=== PATIENT | male | born 1960 | race Caucasian/White ===

== ENCOUNTER → 2016-07-29 | Outpatient (CLI) | payer OTHER ==
[~2016-07-29] MED LIST: /LANS30GR OR; ATARAX OR; BUPIVACAINE HCL 0.25% 10 ML VIAL As Ordered ONE; BUPIVACAINE HCL 0.25% 30 ML VIAL As Ordered ONE; CYCL10TA PO; DIOVAN/HCTZ; DIOVAN/HCTZ PO; FLECTOR1.3 EXT; FLEXERIL PO; FLON0.054; HYDROCODONE/IBUPROFE; HYDROCODONE/IBUPROFE OR; ROSU10TA OR; SOMA350T; SOMA350T OR; SOMA350T PO; TARKA OR; THERGRAN PO; TIZA2CAP3 PO; TRAM50TA2 PO; TRIAMCINOLONE ACETONIDE SUSP 40 MG/ML VIAL (J3301) As Ordered ONE; VIT D 2000 PO; VOLT1GEL2 TOP; [UNRECOGNIZED DRUG - OTHER]
--- NOTE | 2016-07-29 23:29 | ECWPNPC ---
PATIENT NAME: JACK ZENDEJAS : 1960 GENDER: MALE VISIT DATE: 07/29/2016 DISCHARGE DATE: 07/29/16 1147 VISIT LOCKED DATE TIME: PHYSICIAN: EDIL KAPADIA RESOURCE: EDIL KAPADIA REASON FOR APPOINTMENT 1. TPI- LOW BACK HISTORY OF PRESENT ILLNESS HISTORY OF PRESENT ILLNESS: PAIN THE PATIENT DESCRIBES THE PAIN... FALL RISK SCREENING: SCREENING :NO FALLS IN THE PAST YEAR CURRENT MEDICATIONS TAKING DIOVAN HCT 160-25 MG TABLET 1 TABLET ORALLY ONCE A DAY, NOTES: 07/29/16 0700 TAKING FLONASE 50 MCG/ACT SUSPENSION 1 SPRAY IN EACH NOSTRIL NASALLY BID, NOTES: 07/28/16 1800 TAKING MULTIVITAMIN TABLET CHEWABLE 1 TAB(S) ORALLY DAILY, NOTES: 07/28/16 1800 TAKING CRESTOR 10 MG TABLET 1 TABLET ORALLY ONCE A DAY, NOTES: 07/28/16 1800 TAKING TARKA 4-240 MG TABLET EXTENDED RELEASE 1 TABLET WITH FOOD ORALLY ONCE A DAY, NOTES: 07/29/16 0700 TAKING TRAMADOL HCL 50 MG TABLET 1 TABLET NEEDED ORALLY EVERY 6 HRS, NOTES: 07/27/16 1900 TAKING VOLTAREN 1 % GEL 1 DOSE EXTERNALLY EVERY 6 HOURS NEEDED, NOTES: 07/28/16 1200 TAKING VITAMIN D 1000 UNIT TABLET 1 TABLET ORALLY ONCE A DAY, NOTES: 07/28/16 TAKING CYCLOBENZAPRINE HCL 10 MG TABLET 1 TABLET ORALLY THREE TIMES DAILY NEEDED, NOTES: 07/22/16 MEDICATION LIST REVIEWED AND RECONCILED WITH THE PATIENT PAST MEDICAL HISTORY HYPERTENSION EDSON ALLERGIES N.K.D.A. SURGICAL HISTORY RIGHT KNEE ARTHOSCOPY SOCIAL HISTORY GENERAL: TOBACCO USE ARE YOU A:NONSMOKER LEARNING BARRIERS / SPECIAL NEEDS ORIENTED TO PLAN OF CARE: PATIENT, PAIN MANAGEMENT PATIENT, ORIENTED TO PLAN OF CARE: PATIENT, PAIN MANAGEMENT PATIENT. NEW PATIENT PAIN DIARY TODAY'S VISITNOTES FROM 0-10, WHAT LEVEL IS YOUR PAIN TODAY?0 PAIN CLINIC PFS, CLERGY, PUBLIC HEALTH REFERRALS PFS REFERRAL NEEDED?NO CLERGY REFERRAL NEEDED?NO PUBLIC HEALTH REFERRAL NEEDED?NO WAS THE PROVIDER NOTIFIED OF ANY PERTINENT INFO?NO PFS REFERRAL NEEDED?NO CLERGY REFERRAL NEEDED?NO PUBLIC HEALTH REFERRAL NEEDED?NO WAS THE PROVIDER NOTIFIED OF ANY PERTINENT INFO?NO REVIEW OF SYSTEMS CONSTITUTIONAL: ANY CHANGE IN YOUR MEDICAL CONDITION? YES, EDSON STARTED ON CPAP . CHILLS NO . FEVER NO . INFECTION: DO YOU HAVE NEW INFECTIONS? NO . DO YOU HAVE HISTORY OF MRSA? NO . MUSCULOSKELETAL: ANY NEW PATTERNS OF PAIN OR NUMBNESS? NO . GASTROENTEROLOGY: ANY NEW CHANGE IN BOWEL CONTROL? NO . GENITOURINARY: ANY NEW CHANGE IN BLADDER CONTROL? NO . IS THERE A CHANCE YOU COULD BE ? NO . HEMATOLOGY/LYMPH: DO YOU TAKE ANY BLOOD THINNERS? (FOR EXAMPLE- COUMADIN, PLAVIX, AGGRENOX, PLATEL, PRADAXA, OR XARELTO) NO . WHEN WAS YOUR LAST DOSE? DATE: TIME: . NEUROLOGY: HAVE YOU FALLEN IN THE PAST 6 MONTHS? NO . ANY NEW EXTREMITY NUMBNESS OR WEAKNESS? NO . CARDIOLOGY: DO YOU HAVE A PACEMAKER OR DEFIBRILLATOR? NO . RESPIRATORY: HAVE YOU BEEN SICK IN THE PAST WEEK? NO . FEVER NO . FLU LIKE SYMPTOMS? NO . COUGH NO . INTEGUMENTARY: DO YOU HAVE ANY RASHES OR OPEN SORES? NO . ALLERGIC/IMMUNO: ARE YOU ALLERGIC TO SHELLFISH OR IV DYE? NO . ANY NEW ALLERGIES? NO . PSYCHIATRIC: DO YOU HAVE THOUGHTS OF HURTING YOURSELF OR SOMEONE ELSE? NO . ARE YOU ABUSED, NEGLECTED, OR IN AN UNSAFE ENVIRONMENT? NO . ENDOCRINOLOGY: ARE YOU DIABETIC? NO . OTHER: DO YOU NEED ANY PRESCRIPTIONS? NO . IF YES, PLEASE LIST: ____ . ANY NEW PROBLEMS WITH YOUR MEDICATIONS? NO . WHEN DID YOU LAST EAT? YES 07/28/16 1900 . WHEN DID YOU LAST DRINK? ____07/29/16 0700 . WHAT DID YOU LAST DRINK? ____WATER . NAME OF PERSON DRIVING YOU HOME? ____SON, CODI . DO YOU HAVE ANY OTHER QUESTIONS OR CONCERNS NO . REVIEWED BY: PROVIDER: . VITAL SIGNS WT 250 LBS, HT 71 IN, BMI 34.86 INDEX, BP 122/63 MM HG, HR 72 /MIN, RR 16 /MIN, TEMP 97.1 F, OXYGEN SAT % 96, NA INITIALS TL 1002, REVIEWED BY: AD. ASSESSMENTS MYALGIA - M79.1 (PRIMARY) PROCEDURES PN TRIGGER POINT INJECTION WITH STEROIDS PRE PROCEDURE DIAGNOSIS 1. MYALGIA 2. PAIN AT BILATERAL LOWER BACK AREA POST PROCEDURE DIAGNOSIS 1. MYALGIA 2. PAIN AT BILATERAL LOWER BACK AREA PROCEDURE TRIGGER POINT INJECTION AT BILATERAL LOWER BACK AREA SURGEON DR. EDIL KAPADIA CRUISE STAFF MEMBER NONE ANESTHESIA LOCAL PRE PROCEDURE NOTE THE PATIENT HAS A HISTORY OF CHRONIC PAIN AT THE RIGHT AND LEFT LOWER BACK AREA. I EVALUATE THE PATIENT AND REVIEWED THE CHART. THERE IS EVIDENCE OF BANDS OF TISSUE WITH RESTRICTION OF MOVEMENT AND PRESENCE OF TRIGGER POINT AT THE AFFECTED AREA. I WENT OVER THE RISKS, ALTERNATIVES, AND BENEFITS ASSOCIATED WITH THIS PROCEDURE. THE PATIENT WOULD LIKE TO PROCEED AND GIVE CONSENT TO PERFORMED THE PROCEDURE. THE PATIENT DENIES UNEXPLAINABLE WEIGHT LOSS, FEVER, CHILLS, OR NEW CHANGES IN URINARY OR BOWEL CONTROL DESCRIPTION OF PROCEDURE THE PATIENT WAS BROUGHT TO THE PROCEDURE ROOM AND PLACED IN THE SITTING POSITION. THE AREA WAS CLEANED WITH ALCOHOL. THE PROCEDURE WAS DONE USING ASEPTIC STERILE TECHNIQUE. I CHECKED LATERALITY AND THE LEVEL WHERE THE PROCEDURE WAS GOING TO BE PERFORMED WITH THE PATIENT AND THE SUPPORTING STAFF AT THE MOMENT OF THE TIME OUT IN THE PROCEDURE ROOM. USING A 25-GAUGE NEEDLE, TRIGGER POINTS WERE INJECTED AT THE RIGHT AND LEFT LOWER BACK AREA WITH A TOTAL OF 40 ML OF BUPIVACAINE 0.25% AND KENALOG 40 MG. THERE WAS NO EVIDENCE OF BLOOD, PARESTHESIA OR CEREBROSPINAL FLUID DURING THE PROCEDURE. THE PATIENT WAS SENT TO THE RECOVERY ROOM. THE PATIENT WAS MOVING THE EXTREMITIES AND DOING WELL. THERE WAS NO COMPLICATION DURING THE PROCEDURE POST PROCEDURE NOTE THE PATIENT WILL BE SEEN IN A FOLLOW UP IN THE NEXT FEW WEEKS. INSTRUCTIONS WERE GIVEN, QUESTIONS WERE ANSWERED, AND THE PATIENT EXPRESSED UNDERSTANDING AND AGREES WITH THE PLAN. I, ELISA SPENCER, DOCUMENTED THE ABOVE INFORMATION ACTING A SCRIBE FOR DR. KAPADIA. I, DR. KAPADIA, HAVE REVIEWED THE ABOVE DOCUMENT, SCRIBED BY ELISA SPENCER, AND I VERIFY THAT IT IS ACCURATE PN WORKMANS' COMP OPINION IN YOUR OPINION, WAS THE INCIDENT THAT THE PATIENT DESCRIBED THE COMPETENT MEDICAL CAUSE OF THIS INJURY/ILLNESS? YES ARE THE PATIENT'S COMPLAINTS CONSISTENT WITH HIS/HER HISTORY OF THE INJURY/ILLNESS? YES IS THE PATIENT'S HISTORY OF THE INJURY/ILLNESS CONSISTENT WITH YOUR OBJECTIVE FINDING? YES WHAT IS THE PERCENTAGE OF TEMPORARY IMPAIRMENT? MODERATE TO MARKED = 66.7% IS THE PATIENT WORKING? NO DOCTOR ON SITE: EDIL BRADY MD PROCEDURE CODES 26726 INJ TRIGGER POINT /2 MUSCL FOLLOW UP 3 WEEKS ELECTRONICALLY SIGNED BY EDIL KAPADIA MD ON 07/29/2016 AT 08:28 PM EST DISCLAIMER : THIS IS A VISIT SUMMARY EXTRACTED FROM THE [employer] CHART. IT IS NOT A COPY OF THE [employer] PROGRESS NOTE. CIARA
== END ==
LOC: M PAIN 10:00
PROVIDERS: ATTEND Anesthesiology
DX: G89.21 Chronic pain due to trauma (principal); M79.1 Myalgia; M54.5 Low back pain; I10 Essential (primary) hypertension; G47.30 Sleep apnea, unspecified; Z79.891 Long term (current) use of opiate analgesic; Z79.899 Other long term (current) drug therapy
CPT/HCPCS: 20552; J3301

== ENCOUNTER → 2016-09-15 | Outpatient (CLI) | payer OTHER ==
[~2016-09-15] MED LIST changes: -BUPIVACAINE HCL 0.25% 10 ML VIAL As Ordered ONE; -BUPIVACAINE HCL 0.25% 30 ML VIAL As Ordered ONE; -TRIAMCINOLONE ACETONIDE SUSP 40 MG/ML VIAL (J3301) As Ordered ONE
--- NOTE | 2016-09-26 23:36 | ECWPNPC ---
PATIENT NAME: JACK ZENDEJAS : 1960 GENDER: MALE VISIT DATE: 09/15/2016 DISCHARGE DATE: 09/15/16 1232 VISIT LOCKED DATE TIME: PHYSICIAN: EDIL KAPADIA RESOURCE: EDIL KAPADIA REASON FOR APPOINTMENT 1. W/C LUMBAR HISTORY OF PRESENT ILLNESS HISTORY OF PRESENT ILLNESS: PAIN THE PATIENT DESCRIBES THE PAIN... 56 YEAR OLD MALE PATIENT WITH HISTORY OF CHRONIC BACK PAIN. PATIENT DESCRIBES THE PAIN ACHING, BURNING, TENDER, AND SORE WITH A PAIN SCORE OF 3/10 ON TODAY'S VISIT. PATIENT WAS INJURED IN A WORK RELATED INJURY ON 05-23-1998 WHEN HE WAS PICKING UP CEMENT BLOCKS INJURING HIS BACK. PATIENT WAS ALSO INJURED AGAIN ON 08-19-2000 WHEN HE FELL DOWN A FLIGHT OF STAIRS INJURING HIS BACK. PATIENT RECEIVED A TPI IN THE LUMBAR AREA ON 07/29/2016 AND REPORTS FEELING HIS PAIN LEVEL GO DOWN 50 PERCENT FOR 2 MONTHS. PATIENT REPORTS THAT HE SOMETIMES HAS DIFFICULTIES FALLING AND STAYING ASLEEP. PATIENT REPORTS THAT HE SLEEPS USING A CPAP MACHINE. PATIENT STATES THAT HIS ACTIVITY LEVEL INCREASES HE SEES AN INCREASE IN HIS PAIN LEVELS. PATIENT REPORTS THAT HE HAS TRIED PHYSICAL THERAPY IN THE PAST AND IT WORK PRETTY WELL FOR HIM AND IT ALLOWED HIM TO REDUCE HIS MEDICATION INTAKE. PATIENT STATES THAT HE WAS MORE MOBILE AFTER PT. PATIENT REPORTS THAT PUTTING ON CLOTHING WAS EASIER, HE WAS ABLE TO WALK LONGER DISTANCES, HE WAS ABLE TO SITTING FOR A LONGER PERIOD OF TIME WITHOUT THE PAIN COMING BACK SO QUICKLY, AND HE WAS ABLE TO DRIVE WITH LESS DISCOMFORT, AND GETTING IN AND OUT OF THE CAR WAS EASIER. PATIENT DENIES UNEXPLAINABLE WEIGHT LOSS, FEVER, CHILLS, NEW CHANGES ON HIS URINARY OR BOWEL CONTROL. FALL RISK SCREENING: SCREENING :NO FALLS IN THE PAST YEAR CURRENT MEDICATIONS TAKING DIOVAN HCT 160-25 MG TABLET 1 TABLET ORALLY ONCE A DAY, NOTES: 07/29/16 0700 TAKING FLONASE 50 MCG/ACT SUSPENSION 1 SPRAY IN EACH NOSTRIL NASALLY BID, NOTES: 07/28/16 1800 TAKING MULTIVITAMIN TABLET CHEWABLE 1 TAB(S) ORALLY DAILY, NOTES: 07/28/16 1800 TAKING CRESTOR 10 MG TABLET 1 TABLET ORALLY ONCE A DAY, NOTES: 07/28/16 1800 TAKING TARKA 4-240 MG TABLET EXTENDED RELEASE 1 TABLET WITH FOOD ORALLY ONCE A DAY, NOTES: 07/29/16 0700 TAKING TRAMADOL HCL 50 MG TABLET 1 TABLET NEEDED ORALLY EVERY 6 HRS, NOTES: 07/27/16 1900 TAKING VOLTAREN 1 % GEL 1 DOSE EXTERNALLY EVERY 6 HOURS NEEDED, NOTES: 07/28/16 1200 TAKING VITAMIN D 1000 UNIT TABLET 1 TABLET ORALLY ONCE A DAY, NOTES: 07/28/16 TAKING CYCLOBENZAPRINE HCL 10 MG TABLET 1 TABLET ORALLY THREE TIMES DAILY NEEDED, NOTES: 07/22/16 MEDICATION LIST REVIEWED AND RECONCILED WITH THE PATIENT PAST MEDICAL HISTORY HYPERTENSION EDSON ALLERGIES N.K.D.A. SURGICAL HISTORY RIGHT KNEE ARTHOSCOPY FAMILY HISTORY NO FAMILY HISTORY DOCUMENTED. SOCIAL HISTORY GENERAL: TOBACCO USE ARE YOU A:NONSMOKER LEARNING BARRIERS / SPECIAL NEEDS ORIENTED TO PLAN OF CARE: PATIENT, PAIN MANAGEMENT PATIENT, ORIENTED TO PLAN OF CARE: PATIENT, PAIN MANAGEMENT PATIENT. NEW PATIENT PAIN DIARY TODAY'S VISITNOTES FROM 0-10, WHAT LEVEL IS YOUR PAIN TODAY?0 PAIN CLINIC PFS, CLERGY, PUBLIC HEALTH REFERRALS PFS REFERRAL NEEDED?NO CLERGY REFERRAL NEEDED?NO PUBLIC HEALTH REFERRAL NEEDED?NO WAS THE PROVIDER NOTIFIED OF ANY PERTINENT INFO?NO PFS REFERRAL NEEDED?NO CLERGY REFERRAL NEEDED?NO PUBLIC HEALTH REFERRAL NEEDED?NO WAS THE PROVIDER NOTIFIED OF ANY PERTINENT INFO?NO HOSPITALIZATION/MAJOR DIAGNOSTIC PROCEDURE NO HOSPITALIZATION HISTORY. REVIEW OF SYSTEMS CONSTITUTIONAL: ANY CHANGE IN YOUR MEDICAL CONDITION? NO . CHILLS NO . FEVER NO . INFECTION: DO YOU HAVE NEW INFECTIONS? NO . DO YOU HAVE HISTORY OF MRSA? NO . MUSCULOSKELETAL: ANY NEW PATTERNS OF PAIN OR NUMBNESS? NO . GASTROENTEROLOGY: ANY NEW CHANGE IN BOWEL CONTROL? NO . GENITOURINARY: ANY NEW CHANGE IN BLADDER CONTROL? NO . IS THERE A CHANCE YOU COULD BE ? NO . HEMATOLOGY/LYMPH: DO YOU TAKE ANY BLOOD THINNERS? (FOR EXAMPLE- COUMADIN, PLAVIX, AGGRENOX, PLATEL, PRADAXA, OR XARELTO) NO . WHEN WAS YOUR LAST DOSE? DATE: TIME: . NEUROLOGY: HAVE YOU FALLEN IN THE PAST 6 MONTHS? NO . ANY NEW EXTREMITY NUMBNESS OR WEAKNESS? NO . CARDIOLOGY: DO YOU HAVE A PACEMAKER OR DEFIBRILLATOR? NO . RESPIRATORY: HAVE YOU BEEN SICK IN THE PAST WEEK? NO . FEVER NO . FLU LIKE SYMPTOMS? NO . COUGH NO . INTEGUMENTARY: DO YOU HAVE ANY RASHES OR OPEN SORES? NO . ALLERGIC/IMMUNO: ARE YOU ALLERGIC TO SHELLFISH OR IV DYE? NO . ANY NEW ALLERGIES? NO . PSYCHIATRIC: DO YOU HAVE THOUGHTS OF HURTING YOURSELF OR SOMEONE ELSE? NO . ARE YOU ABUSED, NEGLECTED, OR IN AN UNSAFE ENVIRONMENT? NO . ENDOCRINOLOGY: ARE YOU DIABETIC? NO . OTHER: DO YOU NEED ANY PRESCRIPTIONS? YES TRAMADOL . IF YES, PLEASE LIST: ____ . ANY NEW PROBLEMS WITH YOUR MEDICATIONS? NO . WHEN DID YOU LAST EAT? ____ . WHEN DID YOU LAST DRINK? ____ . WHAT DID YOU LAST DRINK? ____ . NAME OF PERSON DRIVING YOU HOME? ____ . DO YOU HAVE ANY OTHER QUESTIONS OR CONCERNS NO . REVIEWED BY: PROVIDER: EDIL KAPADIA MD . VITAL SIGNS WT 265.6 LBS, HT 71 IN, BMI 37.04 INDEX, BP 126/70 MM HG, HR 64 /MIN, RR 16 /MIN, TEMP 97.4 F, OXYGEN SAT % 96, SAFE IN ENV? (Y/N) YES, NA INITIALS TL 1040, REVIEWED BY: PAT. EXAMINATION : PATIENT IS ALERT O X 3 AND COOPERATIVE. PATIENT CAN EXTEND HIS BACK A LITTLE BIT WITH DIFFICULTIES. PATIENT AMBULATES WITH A LIMP IN THE RIGHT LEG. PATIENT HAS TENDERNESS IN THE SACRO ILIAC AND LUMBAR PARASPINAL MUSCLE GROUP. ASSESSMENTS SACROILIITIS, NOT ELSEWHERE CLASSIFIED - M46.1 (PRIMARY) SPONDYLOSIS WITHOUT MYELOPATHY OR RADICULOPATHY, LUMBAR REGION - M47.816 SPONDYLOSIS WITHOUT MYELOPATHY OR RADICULOPATHY, LUMBOSACRAL REGION - M47.817 TREATMENT SACROILIITIS, NOT ELSEWHERE CLASSIFIED NOTES: WE DISCUSSED SEVERAL ISSUES WITH MR. ZENDEJAS'S PAIN MANAGEMENT CASE. PATIENT IS A GOOD CANDIDATE FOR A BILATERAL SIJ, WE DISCUSSED THE RISK, BENEFITS, AND ALTERNATIVES AND THAT PATIENT WOULD LIKE TO PROCEED. PATIENT WILL BE BOOKED PENDING APPROVAL. I ORDER PHYSICAL THERAPY FOR THE PATIENT TO START FOR 6 WEEKS, 3 TIMES A WEEK. I WILL REFILL THE PATIENT'S TRAMADOL TODAY HE IS USING THE MEDICATION FOR SOMATIC PAIN. PATIENT WILL SIGN THE NARCOTIC AGREEMENT TODAY. PATIENT TO FOLLOW UP IN 2 MONTHS. , INSTRUCTIONS WERE GIVEN, QUESTIONS WERE ANSWERED, PATIENT REPORTS UNDERSTANDING AND AGREES WITH THE PLAN. I, DEYVI CHIN, DOCUMENTED THE ABOVE INFORMATION ACTING A SCRIBE FOR DR. KAPADIA. I HAVE REVIEWED THE ABOVE DOCUMENT, WRITTEN BY DEYVI CHIN SCRIBLeeanna AND I VERIFY THAT IT IS ACCURATE. OTHERS REFILL TRAMADOL HCL TABLET, 50 MG, 1 TABLET NEEDED, ORALLY, EVERY 6 HRS FOR PAIN MDD3, 30 DAY(S), 90, REFILLS 0, NOTES: 07/27/16 1900 PROCEDURES PN WORKMANS' COMP OPINION IN YOUR OPINION, WAS THE INCIDENT THAT THE PATIENT DESCRIBED THE COMPETENT MEDICAL CAUSE OF THIS INJURY/ILLNESS? YES ARE THE PATIENT'S COMPLAINTS CONSISTENT WITH HIS/HER HISTORY OF THE INJURY/ILLNESS? YES IS THE PATIENT'S HISTORY OF THE INJURY/ILLNESS CONSISTENT WITH YOUR OBJECTIVE FINDING? YES WHAT IS THE PERCENTAGE OF TEMPORARY IMPAIRMENT? MODERATE TO MARKED = 66.7% IS THE PATIENT WORKING? NO DOCTOR ON SITE: EDIL BRADY MD PREVENTIVE MEDICINE PAIN CLINIC TEACHING: PROCEDURE TEACHING TEACHING HANDOUT FOR SIJ GIVEN AND PROCEDURE REVIEWED WITH PT. PROCEDURE CODES FA211 ESTABILISHED PATIENT [facility]AC[facility] CHARGE G8730 PAIN ASSESS POS TOOL F/U PLAN DOC G8427 DOC MEDS VERIFIED W/PT OR RE DISPOSITION & COMMUNICATION FOLLOW UP 2 MONTHS ELECTRONICALLY SIGNED BY EDIL KAPADIA MD ON 09/26/2016 AT 09:03 PM EDT DISCLAIMER : THIS IS A VISIT SUMMARY EXTRACTED FROM THE [employer] CHART. IT IS NOT A COPY OF THE [employer] PROGRESS NOTE. CIARA
== END ==
LOC: M PAIN 10:40
PROVIDERS: ATTEND Anesthesiology
DX: Z09 Encounter for follow-up examination after completed treatment for conditions other than malignant neoplasm (principal); G89.29 Other chronic pain; M46.1 Sacroiliitis, not elsewhere classified; M47.816 Spondylosis without myelopathy or radiculopathy, lumbar region; M47.817 Spondylosis without myelopathy or radiculopathy, lumbosacral region; I10 Essential (primary) hypertension; G47.33 Obstructive sleep apnea (adult) (pediatric); Z79.899 Other long term (current) drug therapy

== ENCOUNTER → 2016-12-04 | Outpatient (CLI) | payer OTHER ==
--- NOTE | 2016-12-26 00:26 | ECWPNPC ---
PATIENT NAME: JACK ZENDEJAS : 1960 GENDER: MALE VISIT DATE: 12/04/2016 DISCHARGE DATE: 12/04/16 1214 VISIT LOCKED DATE TIME: PHYSICIAN: LAINEY VALENTE RESOURCE: LAINEY VALENTE REASON FOR APPOINTMENT 1. BACK HISTORY OF PRESENT ILLNESS HISTORY OF PRESENT ILLNESS: PAIN THE PATIENT DESCRIBES THE PAIN... FALL RISK SCREENING: SCREENING :NO FALLS IN THE PAST YEAR TODAY'S VISIT: NOTES: WC FOLLOW UP LOW BACK PAIN. RATES PAIN TODAY 5/10. DESCRIBES PAIN CONSTANT, ACHING, BURNING, TENDER AND SORE. 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 IS NOW ON DAILY PREDNISONE. HAD MULTIPLE JOINTS EFFECTED. LUMBAR INJECTIONS ON HOLD UNTIL PMR HAS GONE INTO REMISSION. . CURRENT MEDICATIONS TAKING TRAMADOL HCL 50 MG TABLET 1 TABLET NEEDED ORALLY EVERY 6 HRS FOR PAIN MDD3, NOTES: 07/27/16 1900 TAKING DIOVAN HCT 160-25 MG TABLET 1 TABLET ORALLY ONCE A DAY, NOTES: 07/29/16 0700 TAKING FLONASE 50 MCG/ACT SUSPENSION 1 SPRAY IN EACH NOSTRIL NASALLY BID, NOTES: 07/28/16 1800 TAKING MULTIVITAMIN TABLET CHEWABLE 1 TAB(S) ORALLY DAILY, NOTES: 07/28/16 1800 TAKING CRESTOR 10 MG TABLET 1 TABLET ORALLY ONCE A DAY, NOTES: 07/28/16 1800 TAKING TARKA 4-240 MG TABLET EXTENDED RELEASE 1 TABLET WITH FOOD ORALLY ONCE A DAY, NOTES: 07/29/16 0700 TAKING VOLTAREN 1 % GEL 1 DOSE EXTERNALLY EVERY 6 HOURS NEEDED, NOTES: 07/28/16 1200 TAKING VITAMIN D 1000 UNIT TABLET 1 TABLET ORALLY ONCE A DAY, NOTES: 07/28/16 TAKING CYCLOBENZAPRINE HCL 10 MG TABLET 1 TABLET ORALLY THREE TIMES DAILY NEEDED, NOTES: 07/22/16 TAKING PREDNISONE TAPER WILL CON'T 5MGS 1 TAB ORAL DAILY MEDICATION LIST REVIEWED AND RECONCILED WITH THE PATIENT PAST MEDICAL HISTORY HYPERTENSION EDSON REVIEW OF SYSTEMS CONSTITUTIONAL: ANY CHANGE IN YOUR MEDICAL CONDITION? 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 STARTED ON TAPERING DOSE OF PREDNISONE AND WILL CON'T 5MGS DAILY WHEN TAPERING IS COMPLETED . CHILLS NO . FEVER NO . INFECTION: DO YOU HAVE NEW INFECTIONS? NO . DO YOU HAVE HISTORY OF MRSA? NO . MUSCULOSKELETAL: ANY NEW PATTERNS OF PAIN OR NUMBNESS? YES, EVERY JOINT AND MUSCLE HURTS . GASTROENTEROLOGY: ANY NEW CHANGE IN BOWEL CONTROL? NO . GENITOURINARY: ANY NEW CHANGE IN BLADDER CONTROL? NO . IS THERE A CHANCE YOU COULD BE ? NO . HEMATOLOGY/LYMPH: DO YOU TAKE ANY BLOOD THINNERS? (FOR EXAMPLE- COUMADIN, PLAVIX, AGGRENOX, PLATEL, PRADAXA, OR XARELTO) NO . WHEN WAS YOUR LAST DOSE? DATE: TIME: . NEUROLOGY: HAVE YOU FALLEN IN THE PAST 6 MONTHS? NO . ANY NEW EXTREMITY NUMBNESS OR WEAKNESS? NO . CARDIOLOGY: DO YOU HAVE A PACEMAKER OR DEFIBRILLATOR? NO . RESPIRATORY: HAVE YOU BEEN SICK IN THE PAST WEEK? NO . FEVER NO . FLU LIKE SYMPTOMS? NO . COUGH NO . INTEGUMENTARY: DO YOU HAVE ANY RASHES OR OPEN SORES? NO . ALLERGIC/IMMUNO: ARE YOU ALLERGIC TO SHELLFISH OR IV DYE? NO . ANY NEW ALLERGIES? NO . PSYCHIATRIC: DO YOU HAVE THOUGHTS OF HURTING YOURSELF OR SOMEONE ELSE? NO . ARE YOU ABUSED, NEGLECTED, OR IN AN UNSAFE ENVIRONMENT? NO . ENDOCRINOLOGY: ARE YOU DIABETIC? NO . OTHER: DO YOU NEED ANY PRESCRIPTIONS? NO . IF YES, PLEASE LIST: ____ . ANY NEW PROBLEMS WITH YOUR MEDICATIONS? NO . WHEN DID YOU LAST EAT? ____ . WHEN DID YOU LAST DRINK? ____ . WHAT DID YOU LAST DRINK? ____ . NAME OF PERSON DRIVING YOU HOME? ____ . DO YOU HAVE ANY OTHER QUESTIONS OR CONCERNS NO . REVIEWED BY: PROVIDER: LAINEY BROOKS . VITAL SIGNS WT 251 LBS, HT 71 IN, BMI 35.00 INDEX, BP 128/67 MM HG, HR 61 /MIN, RR 16 /MIN, TEMP 98.1 F, OXYGEN SAT % 93%, NA INITIALS SC 11:42, REVIEWED BY: AD. EXAMINATION GENERAL EXAMINATION: PSYCHALERT , ORIENTED X 3 , APPROPRIATE MOOD AND AFFECT . LUNGS:CLEAR TO AUSCULTATION BILATERALLY. HEART:HEART RATE REGULAR. MUSCULOSKELETAL:SLIGHT WEAKNESS NOTED R>L QUADS. , TRIGGER POINTS AND TIGHT FIBROUS BANDS IDENTIFIED ACROSS LUMBAR PARAVERTEBRAL MUSCLES. POINT TENDERNESS OVER LUMBAT SPINOUS PROCESSES. SLOW TO RISE TO STANDING POSITION. SOME ISSUES NOTED WITH BALANCE. GAIT WIDE BASED, NO FOOT DROP. 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 USE MEDS NEEDED. PROCEDURES PN WORKMANS' COMP OPINION IN YOUR OPINION, WAS THE INCIDENT THAT THE PATIENT DESCRIBED THE COMPETENT MEDICAL CAUSE OF THIS INJURY/ILLNESS? YES ARE THE PATIENT'S COMPLAINTS CONSISTENT WITH HIS/HER HISTORY OF THE INJURY/ILLNESS? YES IS THE PATIENT'S HISTORY OF THE INJURY/ILLNESS CONSISTENT WITH YOUR OBJECTIVE FINDING? YES WHAT IS THE PERCENTAGE OF TEMPORARY IMPAIRMENT? MODERATE TO MARKED = 66.7% IS THE PATIENT WORKING? NO DOCTOR ON SITE: EDIL BRADY MD PROCEDURE CODES FA211 ESTABILISHED PATIENT [facility] CHARGE DISPOSITION & COMMUNICATION FOLLOW UP 6 WEEKS (REASON: WC LOW BACK) ELECTRONICALLY SIGNED BY JP CRAIG ON 12/25/2016 AT 08:29 PM EDT DISCLAIMER : THIS IS A VISIT SUMMARY EXTRACTED FROM THE [employer] CHART. IT IS NOT A COPY OF THE [employer] PROGRESS NOTE. CIARA
== END ==
LOC: M PAIN 11:00
PROVIDERS: ATTEND Nurse Practitioner Family
DX: M46.1 Sacroiliitis, not elsewhere classified (principal); M47.816 Spondylosis without myelopathy or radiculopathy, lumbar region; M47.817 Spondylosis without myelopathy or radiculopathy, lumbosacral region; Z79.891 Long term (current) use of opiate analgesic; Z79.899 Other long term (current) drug therapy

== ENCOUNTER → 2017-08-27 | Outpatient (CLI) | payer OTHER | LOC: M PAIN 11:30 | DX: M46.1 Sacroiliitis, not elsewhere classified (principal); M47.816 Spondylosis without myelopathy or radiculopathy, lumbar region; M47.817 Spondylosis without myelopathy or radiculopathy, lumbosacral region; I10 Essential (primary) hypertension; Z79.891 Long term (current) use of opiate analgesic; Z79.899 Other long term (current) drug therapy | CPT/HCPCS: G0463 ==

== ENCOUNTER → 2017-12-15 | Outpatient (CLI) | payer OTHER | LOC: M PAIN 13:45 | DX: M46.1 Sacroiliitis, not elsewhere classified (principal); M47.816 Spondylosis without myelopathy or radiculopathy, lumbar region; M47.817 Spondylosis without myelopathy or radiculopathy, lumbosacral region; I10 Essential (primary) hypertension; G47.33 Obstructive sleep apnea (adult) (pediatric); M35.00 Sjogren syndrome, unspecified; Z79.51 Long term (current) use of inhaled steroids; Z79.891 Long term (current) use of opiate analgesic; Z79.899 Other long term (current) drug therapy | CPT/HCPCS: G0463 ==

== ENCOUNTER → 2018-02-16 | Outpatient (CLI) | payer OTHER | LOC: M PAIN 13:45 | DX: M47.816 Spondylosis without myelopathy or radiculopathy, lumbar region (principal); M46.1 Sacroiliitis, not elsewhere classified; M47.817 Spondylosis without myelopathy or radiculopathy, lumbosacral region; M79.1 Myalgia; I10 Essential (primary) hypertension; G47.30 Sleep apnea, unspecified; Z79.899 Other long term (current) drug therapy | CPT/HCPCS: G0463 ==

== ENCOUNTER → 2018-04-25 | Outpatient (CLI) | payer OTHER | LOC: M PAIN 09:15 | DX: M47.816 Spondylosis without myelopathy or radiculopathy, lumbar region (principal); M46.1 Sacroiliitis, not elsewhere classified; M47.817 Spondylosis without myelopathy or radiculopathy, lumbosacral region; M79.18 Myalgia, other site; I10 Essential (primary) hypertension; M06.9 Rheumatoid arthritis, unspecified; G47.33 Obstructive sleep apnea (adult) (pediatric); Z79.899 Other long term (current) drug therapy | CPT/HCPCS: G0463 ==

== ENCOUNTER → 2018-08-15 | Outpatient (CLI) | payer OTHER ==
[~2018-08-15] MED LIST changes: +TIZA2CAP PO; -TIZA2CAP3 PO
--- NOTE | 2018-08-27 23:27 | ECWPNPC ---
PATIENT NAME: JACK ZENDEJAS : 1960 GENDER: MALE VISIT DATE: 08/15/2018 DISCHARGE DATE: 08/15/18 1424 VISIT LOCKED DATE TIME: PHYSICIAN: EDIL KAPADIA MD RESOURCE: EDIL KAPADIA MD REASON FOR APPOINTMENT 1. WC BACK HISTORY OF PRESENT ILLNESS HISTORY OF PRESENT ILLNESS: PAIN THE PATIENT DESCRIBES THE PAIN... 58 YEAR OLD MALE PATIENT WITH A HISTORY OF CHRONIC LOW BACK PAIN. THE PATIENT DESCRIBES THE PAIN ACHING, BURNING, SORE, TENDER, AND CONTINUOUS WITH A PAIN SCORE OF 4-7/10 DEPENDING ON PHYSICAL ACTIVITY. THE PATIENT WAS HURT A WORK RELATED INJURY ON 05/23/1998 WHILE WORKING FOR [employer] WHEN HE WAS PICKING UP CEMENT BLOCKS AND INJURED HIS BACK. THE PATIENT WAS ALSO INJURED ON 08/19/2000 WHEN HE FELL DOWN A FLIGHT OF STAIRS CAUSING HIM TO MAKE HIS BACK INJURY WORSE. THE PATIENT SAYS THAT HE HAS SOME DIFFICULTY DOING DAILY ACTIVITIES SUCH WORKING AROUND HIS HOUSE, COOKING, AND CLEANING DUE TO THIS PAIN. THE PATIENT IS CURRENTLY USING TRAMADOL FOR WHEN HIS PAIN IS SEVERE. PATIENT DENIES UNEXPLAINABLE WEIGHT LOSS, FEVER, CHILLS, NEW CHANGES ON HIS URINARY OR BOWEL CONTROL. FALL RISK SCREENING: SCREENING :NO FALLS IN THE PAST YEAR CURRENT MEDICATIONS TAKING BREO ELLIPTA 100-25 MCG/INH AEROSOL POWDER BREATH ACTIVATED 1 PUFF INHALATION ONCE A DAY TAKING DIOVAN HCT 160-25 MG TABLET 1 TABLET ORALLY ONCE A DAY TAKING FLONASE 50 MCG/ACT SUSPENSION 1 SPRAY IN EACH NOSTRIL NASALLY BID TAKING MULTIVITAMIN TABLET CHEWABLE 1 TAB(S) ORALLY DAILY TAKING CRESTOR 10 MG TABLET 1 TABLET ORALLY ONCE A DAY TAKING TARKA 4-240 MG TABLET EXTENDED RELEASE 1 TABLET WITH FOOD ORALLY ONCE A DAY TAKING VITAMIN D 1000 UNIT TABLET 1 TABLET ORALLY ONCE A DAY TAKING VOLTAREN 1 % GEL 1 DOSE EXTERNALLY EVERY 6 HOURS NEEDED TO THE LOW BACK TAKING CYCLOBENZAPRINE HCL 10 MG TABLET 1 TABLET ORALLY THREE TIMES DAILY NEEDED TAKING TRAMADOL HCL 50 MG TABLET 1 TABLET NEEDED ORALLY DAILY PRN PAIN MDD=1 TAKING SULFASALAZINE 500 MG TABLET 1 TABLET ORALLY TWICE DAILY, NOTES: JUST STARTED LAST WEEK UNKNOWN HYDROCODONE-ACETAMINOPHEN 10-500 MG TABLET 1 TAB ORALLY EVERY 6 HOURS NEEDED UNKNOWN PREDNISONE 1 MG TABLET 2 TABLET WITH FOOD OR MILK ORALLY CUT BY 1/2 EVERY 2 WEEKS ONCE A DAY / TAPER DOSE UNKNOWN PREDNISONE TAPER WILL CON'T 5MGS 1 TAB ORAL DAILY MEDICATION LIST REVIEWED AND RECONCILED WITH THE PATIENT PAST MEDICAL HISTORY HYPERTENSION 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 SURGICAL HISTORY RIGHT KNEE ARTHOSCOPY FAMILY HISTORY NO FAMILY HISTORY DOCUMENTED. SOCIAL HISTORY GENERAL: TOBACCO USE ARE YOU A: NONSMOKER . ALCOHOL SCREENING DID YOU HAVE A DRINK CONTAINING ALCOHOL IN THE PAST YEAR?YES HOW OFTEN DID YOU HAVE A DRINK CONTAINING ALCOHOL IN THE PAST YEAR?TWO TO FOUR TIMES A MONTH (2 POINTS) POINTS2 INTERPRETATIONNEGATIVE YARSANISM [id number] OTHER NO RESTORATION BELIEFS THAT WOULD IMPACT HEALTH CARE. AMISH LEARNING BARRIERS / SPECIAL NEEDS ORIENTED TO PLAN OF CARE: PATIENT, PAIN MANAGEMENT PATIENT, ORIENTED TO PLAN OF CARE: PATIENT, PAIN MANAGEMENT PATIENT. NEW PATIENT PAIN DIARY TODAY'S VISIT NOTES, FROM 0-10, WHAT LEVEL IS YOUR PAIN TODAY? 0. PAIN CLINIC PFS, CLERGY, PUBLIC HEALTH REFERRALS PFS REFERRAL NEEDED? NO, CLERGY REFERRAL NEEDED? NO, PUBLIC HEALTH REFERRAL NEEDED? NO, WAS THE PROVIDER NOTIFIED OF ANY PERTINENT INFO? NO, PFS REFERRAL NEEDED? NO, CLERGY REFERRAL NEEDED? NO, PUBLIC HEALTH REFERRAL NEEDED? NO, WAS THE PROVIDER NOTIFIED OF ANY PERTINENT INFO? NO. ADVANCE DIRECTIVE HEALTH CARE PROXY? NO, WOULD YOU LIKE MORE INFORMATION? NO. HOSPITALIZATION/MAJOR DIAGNOSTIC PROCEDURE NO HOSPITALIZATION HISTORY. REVIEW OF SYSTEMS REVIEWED BY: PROVIDER: EDIL KAPADIA MD . CONSTITUTIONAL: ANY CHANGE IN YOUR MEDICAL CONDITION? NO . CHILLS NO . FEVER NO . INFECTION: DO YOU HAVE NEW INFECTIONS? NO . DO YOU HAVE HISTORY OF MRSA? NO . MUSCULOSKELETAL: ANY NEW PATTERNS OF PAIN OR NUMBNESS? NO . GASTROENTEROLOGY: ANY NEW CHANGE IN BOWEL CONTROL? NO . GENITOURINARY: ANY NEW CHANGE IN BLADDER CONTROL? NO . IS THERE A CHANCE YOU COULD BE ? NO . HEMATOLOGY/LYMPH: DO YOU TAKE ANY BLOOD THINNERS? (FOR EXAMPLE- COUMADIN, PLAVIX, AGGRENOX, PLATEL, PRADAXA, OR XARELTO) NO . WHEN WAS YOUR LAST DOSE? DATE: TIME: . NEUROLOGY: HAVE YOU FALLEN IN THE PAST 12 MONTHS? NO . ANY NEW EXTREMITY NUMBNESS OR WEAKNESS? NO . CARDIOLOGY: DO YOU HAVE A PACEMAKER OR DEFIBRILLATOR? NO . RESPIRATORY: HAVE YOU BEEN SICK IN THE PAST WEEK? NO . FEVER NO . FLU LIKE SYMPTOMS? NO . COUGH NO . INTEGUMENTARY: DO YOU HAVE ANY RASHES OR OPEN SORES? NO . ALLERGIC/IMMUNO: ARE YOU ALLERGIC TO IV DYE? NO . ANY NEW ALLERGIES? NO . PSYCHIATRIC: DO YOU HAVE THOUGHTS OF HURTING YOURSELF OR SOMEONE ELSE? NO . ARE YOU ABUSED, NEGLECTED, OR IN AN UNSAFE ENVIRONMENT? NO . ENDOCRINOLOGY: ARE YOU DIABETIC? NO . OTHER: DO YOU NEED ANY PRESCRIPTIONS? NO . IF YES, PLEASE LIST: ____ . ANY NEW PROBLEMS WITH YOUR MEDICATIONS? NO . WHEN DID YOU LAST EAT? ____ . WHEN DID YOU LAST DRINK? ____ . WHAT DID YOU LAST DRINK? ____ . NAME OF PERSON DRIVING YOU HOME? ____ . DO YOU HAVE ANY OTHER QUESTIONS OR CONCERNS NO . VITAL SIGNS WT 260 LBS, HT 71 IN, BMI 36.26 INDEX, BP 135/73 MM HG, HR 73 /MIN, RR 16 /MIN, TEMP 98.6 F, OXYGEN SAT % 96%, NA INITIALS SC 13:27. EXAMINATION GENERAL EXAMINATION: PATIENT IS ALERT O X 3 AND COOPERATIVE. TENDERNESS OVER THE LOW BACK AREA. PRESENCE OF TRIGGER POINTS AND BANDS OF TISSUE WITH RESTRICTION OF MOVEMENT OF THE BACK. ASSESSMENTS MYALGIA, OTHER SITE - M79.18 (PRIMARY) TREATMENT MYALGIA, OTHER SITE CLINICAL NOTES: WE DISCUSSED SEVERAL ISSUES WITH MR. ZENDEJAS'S PAIN MANAGEMENT CASE. THE PATIENT WILL CONTINUE USING THE TRAMADOL NEEDED FOR SEVERE PAIN. ISTOP _[id number] WAS REVIEWED. THE PATIENT WILL FOLLOW UP IN 3 MONTHS. INSTRUCTIONS WERE GIVEN, QUESTIONS WERE ANSWERED, PATIENT REPORTS UNDERSTANDING AND AGREES WITH THE PLAN. I, MATTHEW POPE, DOCUMENTED THE ABOVE INFORMATION ACTING A SCRIBE FOR DR. KAAPDIA. I HAVE REVIEWED THE ABOVE DOCUMENT, WRITTEN BY MATTHEW WAGONERIBLeeanna AND I VERIFY THAT IT IS ACCURATE. OTHERS REFILL TRAMADOL HCL TABLET, 50 MG, 1 TABLET NEEDED, ORALLY, DAILY PRN PAIN MDD=1, 30 DAY(S), 15, REFILLS 0 PROCEDURES PN WORKMANS' COMP OPINION IN YOUR OPINION, WAS THE INCIDENT THAT THE PATIENT DESCRIBED THE COMPETENT MEDICAL CAUSE OF THIS INJURY/ILLNESS? YES ARE THE PATIENT'S COMPLAINTS CONSISTENT WITH HIS/HER HISTORY OF THE INJURY/ILLNESS? YES IS THE PATIENT'S HISTORY OF THE INJURY/ILLNESS CONSISTENT WITH YOUR OBJECTIVE FINDING? YES WHAT IS THE PERCENTAGE OF TEMPORARY IMPAIRMENT? MODERATE TO MARKED = 66.7% IS THE PATIENT WORKING? NO DOCTOR ON SITE: EDIL BRADY MD PROCEDURE CODES FA211 ESTABILISHED PATIENT [facility] FACILITY CHARGE G8427 CURRENT MEDS W/DOSAGES DOCUMENTED G8730 PAIN ASSESS POS TOOL F/U PLAN DOC DISPOSITION & COMMUNICATION FOLLOW UP 3 MONTHS (REASON: W/C LOW BACK) ELECTRONICALLY SIGNED BY EDIL KAPADIA MD, MD ON 08/27/2018 AT 06:10 PM EST DISCLAIMER : THIS IS A VISIT SUMMARY EXTRACTED FROM THE [employer] CHART. IT IS NOT A COPY OF THE [employer] PROGRESS NOTE. BERNIED
== END ==
LOC: M PAIN 13:15
PROVIDERS: ATTEND Anesthesiology
DX: M79.18 Myalgia, other site (principal); M54.5 Low back pain; I10 Essential (primary) hypertension; G47.33 Obstructive sleep apnea (adult) (pediatric); Z79.51 Long term (current) use of inhaled steroids; Z79.899 Other long term (current) drug therapy